=== PATIENT | male | born 1975 | race Caucasian/White ===

== ENCOUNTER → 2019-08-14 | Outpatient (REF) | payer OTHER | LOC: M LAB REF 14:48 | PROVIDERS: ATTEND Nurse Practitioner | DX: R21 Rash and other nonspecific skin eruption (principal) ==

== ENCOUNTER → 2020-06-20 | Outpatient (CLI) | payer BC, OTHER ==
[2020-06-20 11:07] LABS: ALBUMIN 3.8 GM/DL (3.2-5.2); BILIRUBIN,DIRECT 0.1 MG/DL (0.0-0.2); BILIRUBIN,TOTAL 0.4 MG/DL (0.2-1.0); TOTAL PROTEIN 7.2 GM/DL (6.4-8.2)
== END ==
LOC: M LAB 08:41
PROVIDERS: ATTEND Dermatology
DX: Z79.899 Other long term (current) drug therapy (principal)

== ENCOUNTER → 2020-10-07 | Outpatient (CLI) | payer BC, OTHER ==
[~2020-10-07] MED LIST: BUPR1SUB5 PO; ISOT40CA5 PO; LEXA1TAB2 PO; LISI20TA33 PO; METO1TAB33 PO; XARE20TA PO
== END ==
LOC: M LABSMTC 10:52
PROVIDERS: ATTEND Anesthesiology
DX: Z01.812 Encounter for preprocedural laboratory examination (principal)

== ENCOUNTER 2020-10-12 12:43 | Day surgery (SDC) | payer BC, OTHER ==
[~2020-10-12] VITALS: Ht 180.3 cm; Wt 96.3 kg
[~2020-10-12 12:43] MED LIST changes: +LIDOCAINE 1% MDV 20ML VIAL SQ PRN; +LIDOCAINE 2% 100MG/5ML SDV (FOR ANES.) As Ordered ONE; +LR 1,000 ML IV ONE; +MIDAZOLAM INJ 2MG/2ML VIAL (J2250 PER 1MG) As Ordered ONE; +ceFAZolin SOD 2 GM in IV 1 EA IV ONE; +fentaNYL 100 MCG/2 ML INJECTION (J3010) As Ordered ONE; +propofoL 200 MG/20 ML VIAL As Ordered ONE
[2020-10-12] MEDS ORDERED: LIDOCAINE 1% SDV 30ML VIAL As Ordered ONE (13:54)
[2020-10-12] MEDS ORDERED: propofoL 200 MG/20 ML VIAL As Ordered ONE (14:40)
[2020-10-12 16:00] VITALS: BP 135/90
--- NOTE | 2020-10-13 12:54 | RO ---
OPERATIVE NOTE DATE OF OPERATION: 10/12/2020 PREOPERATIVE DIAGNOSIS: Atrial fibrillation monitoring. POSTOPERATIVE DIAGNOSIS: Atrial fibrillation monitoring. FINDINGS: Atrial fibrillation monitoring. PROCEDURE PERFORMED: Implantation of a subcutaneous cardiac rhythm monitor (Medtronic). SURGEON: Mauricio Lentz M.D. PULVERIZER TENDER: None. ANESTHESIA: Lidocaine 1% local/monitored anesthetic care. SPECIMENS: No specimens. ESTIMATED BLOOD LOSS: Less than 2 mL. No blood products replaced. DRAINS: No drains. COMPLICATIONS: No complications. PROCEDURE DESCRIPTION: The patient was prepped and draped over the left anterior chest and sternum. Lidocaine 1% was used for local anesthetic. An incision approximately 1 cm in length was made in the third intercostal space 1 inch lateral to the left parasternal border. The guide on the insertion tool was placed into the incision and advanced in a caudal direction parallel to the anterior chest wall. The insertion tool was rotated 180 degrees. The punch was then placed into the insertion tool and used to advance the subcutaneous cardiac rhythm monitor into the subcutaneous tissue. The punch was removed and then the insertion tool was removed leaving the cardiac rhythm monitor in situ. The incision was approximated temporarily using a 4-0 Biosyn suture placed subcuticular with the free ends of the suture protruding from the skin 1 cm to either side of the ends of the incision. This was used to approximate the incision line under tension. Dermabond was applied. The Biosyn suture was then pulled through the incision and removed entirely. The patient tolerated the procedure well without any immediate complications. The subcutaneous cardiac rhythm monitor implanted was a Medtronic LINQ II model LNQ22 with serial number [id number]. The initial R wave amplitude measured 0.75 millivolts.
== END 2020-10-12 16:00 | disposition home or self-care (01) ==
LOC: M SDC 12:43
PROVIDERS: ATTEND Internal Medicine Cardiovascular Disease
DX: I48.91 Unspecified atrial fibrillation (principal); I10 Essential (primary) hypertension; Z79.899 Other long term (current) drug therapy; Z79.01 Long term (current) use of anticoagulants; F41.9 Anxiety disorder, unspecified; F32.9 Major depressive disorder, single episode, unspecified; E66.3 Overweight
CPT/HCPCS: 33285; C1764; J0690; J2250; J3010

== ENCOUNTER → 2024-01-01 | Outpatient (CLI) | payer BC ==
[~2024-01-01] MED LIST changes: -LIDOCAINE 1% MDV 20ML VIAL SQ PRN; -LIDOCAINE 2% 100MG/5ML SDV (FOR ANES.) As Ordered ONE; -LR 1,000 ML IV ONE; -MIDAZOLAM INJ 2MG/2ML VIAL (J2250 PER 1MG) As Ordered ONE; -ceFAZolin SOD 2 GM in IV 1 EA IV ONE; -fentaNYL 100 MCG/2 ML INJECTION (J3010) As Ordered ONE; -propofoL 200 MG/20 ML VIAL As Ordered ONE
== END ==
LOC: M PLAIMG 15:00
PROVIDERS: ATTEND Registered Nurse
DX: I11.9 Hypertensive heart disease without heart failure (principal); I47.10 Supraventricular tachycardia, unspecified; R94.31 Abnormal electrocardiogram [ECG] [EKG]; I08.1 Rheumatic disorders of both mitral and tricuspid valves

== ENCOUNTER → 2024-04-22 | Outpatient (CLI) | payer BC ==
[2024-04-22 19:08] LABS: ALBUMIN 3.8 G/DL (3.2-5.2); BLOOD UREA NITROGEN 7 MG/DL (9-23); CALCIUM LEVEL 9.4 MG/DL (8.5-10.1); CARBON DIOXIDE LEVEL 29 MMOL/L (20-31); CHLORIDE LEVEL 106 MMOL/L (98-107); CREATININE FOR GFR 0.77 MG/DL (0.70-1.30); GLOMERULAR FILTRATION RATE > 60.0 (>60); GLUCOSE, FASTING 96 MG/DL (60-100); PHOSPHORUS LEVEL 2.8 MG/DL (2.5-4.9); POTASSIUM SERUM 4.9 MMOL/L (3.5-5.1); SODIUM LEVEL 141 MMOL/L (136-145)
== END ==
LOC: M PLALAB 14:43
PROVIDERS: ATTEND Registered Nurse
DX: I11.9 Hypertensive heart disease without heart failure (principal)

== ENCOUNTER → 2024-07-17 | Outpatient (CLI) | payer BC ==
[2024-07-17 15:41] LABS: ALBUMIN 3.4 G/DL (3.2-5.2); BLOOD UREA NITROGEN 8 MG/DL (9-23); CALCIUM LEVEL 8.9 MG/DL (8.5-10.1); CARBON DIOXIDE LEVEL 32 MMOL/L (20-31); CHLORIDE LEVEL 104 MMOL/L (98-107); CREATININE FOR GFR 0.81 MG/DL (0.70-1.30); GLOMERULAR FILTRATION RATE > 90.0 (>60); GLUCOSE, FASTING 98 MG/DL (60-100); MAGNESIUM LEVEL 1.9 MG/DL (1.8-2.4); PHOSPHORUS LEVEL 2.9 MG/DL (2.5-4.9); POTASSIUM SERUM 4.2 MMOL/L (3.5-5.1); SODIUM LEVEL 142 MMOL/L (136-145)
== END ==
LOC: M RAD 14:26
PROVIDERS: ATTEND Registered Nurse
DX: R60.0 Localized edema (principal)